=== PATIENT | female | born 1960 | race Caucasian/White ===

== ENCOUNTER 2024-04-16 06:01 | Outpatient (CLI) | payer BC, SELFPAY ==
--- NOTE | 2024-04-16 06:15 | USCV_ITS ---
Maria Elena Bahena Age: 63 Gender: F : 1960 Exam Date: 04/16/2024 06:26 Ordering Phys: Tita Wang MD Technologist: VERONICA Exam Location: [facility] – [place] Indication: PRE SYNCOPE BP: 124 / 77 HR: 70 Rhythm: Sinus Technical Quality: Adequate MEASUREMENTS (Male / Female) Normal Values 2D ECHO LV Diastolic Diameter PLAX 4.4 cm 4.2 - 5.9 / 3.9 - 5.3 cm IVS Diastolic Thickness 1.0 cm 0.6 - 1.0 / 0.6 - 0.9 cm IVS Systolic Thickness 1.4 cm LVPW Diastolic Thickness 1.4 cm 0.6 - 1.0 / 0.6 - 0.9 cm LVPW Systolic Thickness 2.2 cm LVOT Diameter 2.0 cm LV Ejection Fraction 2D Teich 58.3 % LV Ejection Fraction MOD 2C 58.7 % LV Ejection Fraction 2C AL 58.7 % LA Diameter 3.0 cm RA Systolic Volume 4C AL 19.9 ml RA Systolic Volume 4C MOD 18.9 ml LA Sys Volume AL 17.8 cm cubed LA Sys Volume Index AL 10.8 cm cubed/m squared Aorta at Sinotubular Diameter 2.4 cm IVC Diameter 0.8 cm M-MODE LA Ao Ratio MM 0.8 AV Cusp Separation MM 1.5 cm DOPPLER AV Peak Velocity 107.0 cm/s LVOT Peak Velocity 88.0 cm/s AV Area Cont Eq vti 2.5 cm squared AV Area Cont Eq pk 2.5 cm squared MV Peak Velocity 90.0 cm/s MV Area PHT 3.4 cm squared Mitral E to A Ratio 0.8 TR Peak Velocity 222.0 cm/s TR Peak Gradient 19.7 mmHg TR Mean Velocity 187.0 cm/s TR Mean Gradient 14.7 mmHg TR Velocity Time Integral 74.2 cm TV Peak E Velocity 52.0 cm/s Right Atrial Pressure 3.0 mmHg Pulmonary Artery Systolic Pressu 22.7 mmHg PV Peak Velocity 74.0 cm/s RV Ejection Time 0.3 s FINDINGS Left Ventricle Normal left ventricular size, systolic function and wall thickness, with no regional wall motion abnormalities. Normal left ventricular wall thickness. Grade I/IV diastolic dysfunction (abnormal relaxation filling pattern), normal to mildly elevated filling pressures. Breast implants limit visualization Right Ventricle The right ventricle is normal in size and function. Right Atrium The right atrium is normal in size. Left Atrium The left atrium is normal in size. Mitral Valve Structurally normal mitral valve without significant stenosis or prolapse. There is no mitral regurgitation. Aortic Valve Structurally normal aortic valve without significant sclerosis or stenosis. There is no aortic regurgitation. Tricuspid Valve Structurally normal tricuspid valve without significant stenosis or regurgitation. Pulmonary artery systolic pressure is normal. Pulmonic Valve Structurally normal pulmonic valve without significant stenosis. There is no pulmonic regurgitation. Pericardium Normal pericardium without effusion. Aorta Normal ascending aorta dimension. IVC The inferior vena cava appears normal. CONCLUSIONS Normal left ventricular size, systolic function and wall thickness, with no regional wall motion abnormalities. Normal left ventricular wall thickness. Grade I/IV diastolic dysfunction (abnormal relaxation filling pattern), normal to mildly elevated filling pressures. Breast implants limit visualization. The last study was performed 03/10/2019. No change. Dr. Bhupinder Duron MD (Electronically Signed) Final Date: 17 April 2024 11:26 S
--- NOTE | 2024-04-16 06:45 | USCV_ITS ---
Maria Elena Bahena Age: 63 Gender: F : 1960 Exam Date: 04/16/2024 06:48 Ordering Phys: Tita Wang MD Technologist: VERONICA Exam Location: [facility] [place] Indication: PRE SYNCOPE HISTORY: Diameter (cm) AP x Transverse x Length Velocity (cm/s) Waveform Prox Aorta: 2.30 x 2.80 x 58.90 Triphasic Mid Aorta: 1.80 x 1.90 x 79.10 Triphasic Distal Aorta: 1.50 x 1.70 x 109.00 Triphasic Right Iliac Prox: 1.10 x 1.00 x 77.70 Triphasic Left Iliac Prox: 0.90 x 1.00 x 118.30 Triphasic Stent Prox Landing x x Aneurysmal Sac Max x x Lt Lat Sac Dim Rt Lat Sac Dim Stent Dist Landing x x Right Iliac Stent x x Left Iliac Stent x x Right Renal Art Left Renal Art FINDINGS: CONCLUSIONS No evidence of abdominal aortic or bilateral iliac aneurysm. Moderate aortic atheromatous disease Emiliano Sauceda MD (Electronically Signed) Final Date: 16 April 2024 09:45 S
== END 2024-04-16 06:02 | disposition home or self-care (01) ==
LOC: RAD 06:01
PROVIDERS: PCP Family Medicine; Visit Provider Family Medicine
DX: R55 Syncope and collapse (principal); I10 Essential (primary) hypertension; I70.0 Atherosclerosis of aorta; I50.30 Unspecified diastolic (congestive) heart failure; Z98.82 Breast implant status
CPT/HCPCS: 76706; 93306

== ENCOUNTER 2025-04-27 20:00 | Outpatient (CLI) | payer BC, SELFPAY | END 2025-04-27 20:01 | disposition home or self-care (01) | LOC: SLEEP 04-28 04:41 | PROVIDERS: PCP Family Medicine; Referring Provider Nurse Practitioner; Visit Provider Internal Medicine Pulmonary Disease | DX: G47.33 Obstructive sleep apnea (adult) (pediatric) (principal); G47.36 Sleep related hypoventilation in conditions classified elsewhere | CPT/HCPCS: 95810 ==

== ENCOUNTER 2025-06-29 20:00 | Outpatient (CLI) | payer BC, MEDICARE, SELFPAY | END 2025-06-29 20:01 | disposition home or self-care (01) | LOC: SLEEP 06-30 06:16 | PROVIDERS: PCP Family Medicine; Referring Provider Nurse Practitioner; Visit Provider Internal Medicine Pulmonary Disease | DX: G47.33 Obstructive sleep apnea (adult) (pediatric) (principal) | CPT/HCPCS: 95811 ==